=== PATIENT | female | born 1960 | race Asian ===

== ENCOUNTER 2018-12-22 01:39 | Emergency (ER) | payer OTHER ==
[2018-12-22 02:06] VITALS: BP 145/83; PULSE 77; TEMP 98.2; BMI 25.4
[2018-12-22] MEDS ORDERED: IBUPROFEN 600 MG TABLET (FP) PO ONE ×2 (02:52→03:04)
--- NOTE | 2018-12-22 02:52 | PDOC ---
History of Present Illness - General Chief Complaint: Injury Stated Complaint: BACK PAIN S/P FALL History Source: Patient Exam Limitations: No Limitations - History of Present Illness Initial Comments: 12/22/18 02:50 58 yo F h/o htn here s/p slip and fall. pt was taking out garbage and slipped fell back on her back. no pain with ambulating and movement. lumbar spine. no hip pain. no h/o prior fx. hasn't walked since fall. did not hit head no loc no other complaints. happened just prior to arrival. Past History - Past Medical History Allergies/Adverse Reactions: Allergies Allergy/AdvReac Type Severity Reaction Status Date / Time No Known Drug Allergies Allergy Verified 12/22/18 02:06 Home Medications: Ambulatory Orders Simvastatin [Zocor -] 20 mg PO HS 02/21/16 Ibuprofen [Motrin -] 600 mg PO TID PRN #90 tablet MDD 3 12/22/18 Anemia: No Asthma: No Cancer: No Cardiac Disorders: No CVA: No COPD: No CHF: No Dementia: No Diabetes: No GI Disorders: No Disorders: No HTN: No Hypercholesterolemia: Yes Liver Disease: No Seizures: No Thyroid Disease: No - Surgical History Abdominal Surgery: No Appendectomy: No Cardiac Surgery: No Cholecystectomy: No Lung Surgery: No Neurologic Surgery: No Orthopedic Surgery: No - Suicide/Smoking/Psychosocial Hx Smoking History: Never smoked Have you smoked in the past 12 months: No Number of Cigarettes Smoked Daily: 0 Information on smoking cessation initiated: No Hx Alcohol Use: No Drug/Substance Use Hx: No Substance Use Type: None Hx Substance Use Treatment: No Review of Systems - Review of Systems Constitutional: No: Chills, Diaphoresis HEENTM: No: Eye Pain Respiratory: No: Cough, Orthopnea Cardiac (ROS): No: Chest Pain, Edema : No: Burning, Dysuria Musculoskeletal: Yes: Back Pain Integumentary: No: Bruising All Other Systems: Reviewed and Negative *Physical Exam - Vital Signs Last Vital Signs Temp Pulse Resp BP Pulse Ox 98.2 F 77 19 145/83 100 12/22/18 01:39 12/22/18 01:39 12/22/18 01:39 12/22/18 01:39 12/22/18 01:39 - Physical Exam Comments: 12/22/18 05:57 awake alert lungs clear bilaterally heart rrr no mrg abd soft nt nd. ext wwp . no midline spinal tenderness paraspinal lower lumbar pain wtih palpation. 5/5 lower ext strength. sensation intact. Moderate Sedation - Procedure Monitoring Vital Signs: Procedure Monitoring Vital Signs Temperature 98.2 F 12/22/18 01:39 Pulse Rate 77 12/22/18 01:39 Respiratory Rate 19 12/22/18 01:39 Blood Pressure 145/83 12/22/18 01:39 O2 Sat by Pulse Oximetry (%) 100 12/22/18 01:39 Medical Decision Making - Medical Decision Making 12/22/18 02:51 differential lumbar fx, pelvic fx. plan xray l/s spine, pain control with motrin pelvic xray. reassess. 12/22/18 05:54 xray negative for fracure. given motrin dc home with fu pcp 12/22/18 05:59 xray with clip seen, pt denies swallowign any foreign body. states she believes it mesh. *DC/Admit/Observation/Transfer Diagnosis at time of Disposition: Contusion, Back pain - Discharge Dispostion Disposition: HOME Condition at time of disposition: Improved Decision to Admit order: No - Prescriptions Prescriptions: Ibuprofen [Motrin -] 600 mg PO TID PRN #90 tablet MDD 3 PRN Reason: Pain - Referrals Referrals: Diogenes Ellis MD [Primary Care Provider] - - Patient Instructions Printed Discharge Instructions: Contusion, Low Back Pain Additional Instructions: your xray is negative for fracture. you should follow up with your primary doctor. you can also follow up with an orthopedist. take ibuprofen 600 mg every 8 hrs as needed for pain. return for any problems or concerns. - Post Discharge Activity
== END 2018-12-22 06:26 | disposition home or self-care (01) ==
LOC: JER 01:39
DX: S30.0XXA Contusion of lower back and pelvis, initial encounter (principal); W01.0XXA Fall on same level from slipping, tripping and stumbling without subsequent striking against object, initial encounter; Y93.E9 Activity, other interior property and clothing maintenance; Y92.018 Other place in single-family (private) house as the place of occurrence of the external cause; Y99.8 Other external cause status
CPT/HCPCS: 72100-TC-FY; 72170-TC-FY; 99281-25

== ENCOUNTER 2019-04-09 18:02 | Emergency (ER) | payer OTHER ==
--- NOTE | 2019-04-09 18:06 | PDOC ---
Rapid Medical Evaluation Time Seen by Provider: 04/09/19 18:06 Medical Evaluation: Allergies Allergy/AdvReac Type Severity Reaction Status Date / Time No Known Drug Allergies Allergy Verified 12/22/18 02:06 04/09/19 18:06 I have performed a brief in-person evaluation of this patient. The patient presents with a chief complaint of: employee - exposure - scratched by pt at [facility] while seizing, unknown when last tdap was Pertinent physical exam findings: well appearing I have ordered the following: labs, tdap The patient will proceed to the ED for further evaluation.
[2019-04-09] MEDS ORDERED: DIPHTH,PERTUSS(ACELL),TET 0.5 ML DISP.SYRIN IM ONE ×2 (18:08→18:49)
[2019-04-09 18:09] VITALS: BP 132/74; PULSE 80; TEMP 98.2; BMI 26.6
--- NOTE | 2019-04-09 18:51 | PDOC ---
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 Patient denies any body fluids from patient intrusion to this, was a fingernail. No other injury. States pulled her wrist but does not have tenderness or pain. Was concerned about potential body fluid exposure. Occurred: reports: just prior to arrival Past History - Travel Traveled outside of the country in the last 30 days: No Close contact w/someone who was outside of country & ill: No - Past Medical History Allergies/Adverse Reactions: Allergies Allergy/AdvReac Type Severity Reaction Status Date / Time No Known Drug Allergies Allergy Verified 04/09/19 18:09 Home Medications: Ambulatory Orders Simvastatin [Zocor -] 20 mg PO HS 02/21/16 Ibuprofen [Motrin -] 600 mg PO TID PRN #90 tablet MDD 3 12/22/18 Anemia: No Asthma: No Cancer: No Cardiac Disorders: No CVA: No COPD: No CHF: No Dementia: No Diabetes: No GI Disorders: No Disorders: No HTN: No Hypercholesterolemia: Yes Liver Disease: No Seizures: No Thyroid Disease: No - Surgical History Abdominal Surgery: No Appendectomy: No Cardiac Surgery: No Cholecystectomy: No Lung Surgery: No Neurologic Surgery: No Orthopedic Surgery: No - Immunization History Immunization Up to Date: Yes - Suicide/Smoking/Psychosocial Hx Smoking History: Never smoked Have you smoked in the past 12 months: No Number of Cigarettes Smoked Daily: 0 Information on smoking cessation initiated: No Hx Alcohol Use: No Drug/Substance Use Hx: No Substance Use Type: None Hx Substance Use Treatment: No Review of Systems - Review of Systems Able to Perform ROS?: Yes Is the patient limited Bulgarian proficient: Yes Constitutional: Yes: See HPI. No: Symptoms Reported, Fever, Malaise HEENTM: No: Symptoms Reported Musculoskeletal: Yes: Symptoms Reported, See HPI. No: Joint Pain Integumentary: Yes: Symptoms Reported, See HPI, Other (superficial abrasion to radial aspect dorsum of the right wrist. No active bleeding, no swelling or ecchymoses.) All Other Systems: Reviewed and Negative *Physical Exam - Vital Signs Last Vital Signs Temp Pulse Resp BP Pulse Ox 98.2 F 80 18 132/74 99 04/09/19 18:07 04/09/19 18:07 04/09/19 18:07 04/09/19 18:07 04/09/19 18:07 - Physical Exam General Appearance: Yes: Nourished, Appropriately Dressed. No: Apparent Distress HEENT: positive: YOLA, Normal ENT Inspection, TMs Normal, Pharynx Normal Neck: positive: Supple Extremity: positive: Normal Capillary Refill, Normal Inspection, Normal Range of Motion. negative: Tender Integumentary: positive: Normal Color, Dry, Warm, Other (2 mm x 1 mm area of abrasion to dorsum of right wrists no active bleeding, not full-thickness. Has full range of motion to wrist, digits, able to supinate and pronate without reproduced pain.) Neurologic: positive: financial solutions advisor II-XII NML intact, Fully Oriented, Alert, Normal Mood/ Affect, Normal Response, Motor Strength 5/5 Progress Note - Progress Note Progress Note: Superficial abrasion to right wrist. Wound was cleaned with Hibiclens and dressed with bacitracin ointment and Band-Aid. No body fluid exposure therefore no post exposure prophylaxis or laboratory work required. Patient's tetanus/ diphtheria/pertussis booster was updated today *DC/Admit/Observation/Transfer Diagnosis at time of Disposition: Abrasion hand Qualifiers: Encounter type: initial encounter Laterality: right Qualified Code(s): S60.511A - Abrasion of right hand, initial encounter - Discharge Dispostion Disposition: HOME Condition at time of disposition: Stable Decision to Admit order: No - Referrals Referrals: Diogenes Ellis MD [Primary Care Provider] - - Patient Instructions Additional Instructions: Rest, elevate, avoid strenuous activity or heavy lifting until wound is healed Remove dressing gently and wash area with soap and water. Reapply bacitracin ointment and dressing daily for the next 5 days or until healed Her tetanus/diphtheria/pertussis booster was updated today Tylenol or Motrin for pain relief as needed Follow-up with employee health as needed - Post Discharge Activity Forms/Work/School Notes: Back to Work
[2019-04-09] MEDS ORDERED: BACITRACIN 15 GM TUBE TOPICAL OINTMENT ONE (18:59)
== END 2019-04-09 19:07 | disposition home or self-care (01) ==
LOC: JERFT 18:02
PROC: 3E0234Z Introduction of Serum, Toxoid and Vaccine into Muscle, Percutaneous Approach (ICD-10-PCS; principal; 2019-04-09)
DX: S60.511A Abrasion of right hand, initial encounter (principal); W50.4XXA Accidental scratch by another person, initial encounter; Y93.F9 Activity, other caregiving; Y92.238 Other place in hospital as the place of occurrence of the external cause; Y99.0 Civilian activity done for income or pay
CPT/HCPCS: 90715; 99281-25